=== PATIENT | male | born 1990 | race Caucasian/White ===

== ENCOUNTER 2020-02-14 22:51 | Emergency (ER) | payer SELFPAY ==
[~2020-02-14] VITALS: Ht 170.2 cm; Wt 82.7 kg
--- NOTE | 2020-02-14 23:07 | NUR ---
PATIENT BROUGHT IN BY [facility]. FOUND SLEEPING ON SIDEWALK, [employer] FOUND PATIENT AND PATIENT STARTED RUNNING AWAY AND WAS NOT MAKING ANY SENSE WHEN TALKING. PATIENT UNABLE TO ANSWER ANY QUESTIONS, PUPILS DILATED, DOES NOT EVEN KNOW HIS OWN FULL NAME. PATIENT STATES NO MEDICAL HISTORY AND STATES NO DRUG USAGE. PATIENT PLACED ON 4 POINT LEATHER RESTRAINTS, PATIENT LAUGHING AND STATING MANY STORIES UNRELATED TO QUESTIONS ASKED. MONITORS PLACED, SAFETY MEASURES IN PLACE. ERP SAW PATIENT AND WILL PLACE ORDERS.
[2020-02-14] MEDS ORDERED: ZIPRASIDONE 20 MG INJ IM ONE ×2 (23:10→23:30)
[2020-02-14 23:24] LABS: BASOPHILS # (AUTO) 0.05 x10^3/uL (0-0.1); BASOPHILS % (AUTO) 1 % (0-1); EOSINOPHILS # (AUTO) 0.16 x10^3/uL (0-0.4); EOSINOPHILS % (AUTO) 3 % (1-7); LYMPHOCYTES # (AUTO) 1.98 x10^3/uL (1-3.4); LYMPHOCYTES % (AUTO) 32 % (22-44); MD NO; MEAN CORPUSCULAR HGB CONC 33.7 g/dL (33.2-36.2); MEAN CORPUSCULAR VOLUME 89.1 fL (81-97); MEAN PLATELET VOLUME 7.2 fL (7.4-10.4); MONOCYTES # (AUTO) 0.42 x10^3/uL (0.2-0.8); MONOCYTES % (AUTO) 7 % (2-9); NEUTROPHILS # (AUTO) 3.67 x10^3/uL (1.8-6.8); NEUTROPHILS % (AUTO) 58 % (42-75); PLATELET COUNT 237 x10^3/uL (130-400); RED BLOOD COUNT 5.32 x10^6/uL (4.38-5.82); RED CELL DISTRIBUTION WIDTH 13.3 % (9.4-14.8)
[2020-02-14 23:36] LABS: ALANINE AMINOTRANSFERASE 40 U/L (12-78); ALBUMIN 4.5 g/dL (3.4-5.0); ANION GAP 9 mmol/L (5-15); CHLORIDE 110 mmol/L (98-107)
[2020-02-14 23:37] LABS: SALICYLATE LEVEL < 1.7 mg/dL (2.8-20.0)
[2020-02-14 23:38] LABS: ALKALINE PHOSPHATASE 65 U/L (45-117); BILIRUBIN,TOTAL 0.4 mg/dL (0.2-1.0); CREATININE 1.16 mg/dL (0.7-1.3); TOTAL PROTEIN 8.1 g/dL (6.4-8.2)
--- NOTE | 2020-02-15 00:03 | NUR ---
PATIENT RESTING IN BED, RIGHT WRIST AND LEFT LEG RESTRAINT TAKEN OFF. PATIENT STILL A LITTLE RESTLESS AND IS STILL ALTERED.
--- NOTE | 2020-02-15 00:35 | NUR ---
PRECEPTOR RN: PT FULLY REMOVED FROM ALL RESTRAINTS. PT SLEEPING, RESPIRATIONS EVEN AND UNLABORED. ALL VITALS STABLE. AWAITING PT TO SOBER UP FOR SAFE DISCHARGE
--- NOTE | 2020-02-15 01:23 | NUR ---
TASK RN: PT RESTING IN GURNEY, SIDE LYING, WITH EYES CLOSED. EVEN/REGULAR RESPIRATIONS NOTED. VS UNREMARKABLE.
[2020-02-15 03:00] VITALS: BP 109/67
--- NOTE | 2020-02-15 03:40 | NUR ---
PATIENT TAKING OFF ALL HIS MONITORS, AND WHEN ASKING ABOUT DRUGS PATIENT STATES "I DID ALL OF THEM, SO MANY DRUGS". 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 PATIENT STILL NOT SAFE FOR D/C AT THIS TIME. WILL REASSESS LATER.
--- NOTE | 2020-02-15 05:11 | NUR ---
Patient given discharge instructions and they have confirmed that they understand the instructions. Patient A/O x 4 now. Patient ambulatory with steady gait.
== END 2020-02-15 05:15 | disposition home or self-care (01) ==
LOC: EDBD 22:51 → ED 02-15 04:00
DX: T51.91XA Toxic effect of unspecified alcohol, accidental (unintentional), initial encounter (principal); F10.120 Alcohol abuse with intoxication, uncomplicated; I51.7 Cardiomegaly; I25.2 Old myocardial infarction; Y92.89 Other specified places as the place of occurrence of the external cause; Y90.9 Presence of alcohol in blood, level not specified
CPT/HCPCS: 36415; 80053; 80307; 85025; 93005; 96372; 99285; J3486